=== PATIENT | female | born 2000 | race Caucasian/White ===

== ENCOUNTER → 2019-01-24 | Outpatient (CLI) | payer OTHER ==
[2016-06-19 21:04] VITALS: BP 112/65
[~2019-01-24] MED LIST: BIRTH CONTROL
== END ==
LOC: RAD 13:54
DX: M79.671 Pain in right foot (principal)

== ENCOUNTER → 2019-12-05 | Outpatient (CLI) | payer BC ==
[2016-06-19 21:04] VITALS: BP 112/65
== END ==
LOC: LAB 11:35
DX: J02.9 Acute pharyngitis, unspecified (principal)

== ENCOUNTER → 2020-02-04 | Outpatient (CLI) | payer BC ==
[2016-06-19 21:04] VITALS: BP 112/65
== END ==
LOC: LAB 16:59
DX: R50.9 Fever, unspecified (principal); R06.02 Shortness of breath; R05 Cough

== ENCOUNTER → 2021-04-23 | Outpatient (CLI) | payer SELFPAY | LOC: LAB 09:51 | DX: R07.0 Pain in throat (principal) ==